=== PATIENT | female | born 1980 | race American Indian/Alaskan Native ===

== ENCOUNTER 2018-04-15 13:56 | Emergency (ER) | payer MEDICAID, OTHER ==
[2018-04-15 14:10] VITALS: BP 125/83; PULSE 81; RESP 16; TEMP 98.3; O2SAT 95; BMI 47.5
--- NOTE | 2018-04-15 14:40 | C.PDOC ---
History Of Present Illness 37 y/o female presents to the ED complaining of persistent right groin pain for 1 month, worsen for the past week. Pain worsens with right leg flexion. No trauma. Also complaining of new onset bilateral inner thigh darkness s/p treatment for fungal skin infection with unknown antibiotics. Denies any itching or redness. Additionally patient reports concern for +STD exposure s/p unprotected sex. Denies any vaginal discharge. Time Seen by Provider: 04/15/18 14:21 Chief Complaint (Nursing): Groin Pain History Per: Patient History/Exam Limitations: no limitations Onset/Duration Of Symptoms: Days Current Symptoms Are (Timing): Still Present Past Medical History Reviewed: Historical Data, Nursing Documentation, Vital Signs Vital Signs: Last Vital Signs Temp 98.3 F 04/15/18 14:06 Pulse 81 04/15/18 14:06 Resp 16 04/15/18 14:06 BP 125/83 04/15/18 14:06 Pulse Ox 95 04/15/18 14:06 - Medical History PMH: Anxiety, Asthma, Bipolar Disorder, Depression, Schizophrenia Denies: Diabetes, Hepatitis, HIV, HTN, Chronic Kidney Disease, Seizures, Sexually Transmitted Disease - [facility] Procedures INDIVID PSYCHOTHERAP NEC (11/14/13) INJECT/INFUSE NEC (09/16/14) NEBULIZER THERAPY (11/19/13) OTHER GROUP THERAPY (11/14/13) PSYCHIA INTERV/EVAL NEC (05/03/13) Family History: States: Unknown Family Hx - Social History Hx Alcohol Use: No Hx Substance Use: Yes - Immunization History Hx Influenza Vaccination: No Review Of Systems Constitutional: Negative for: Fever Gastrointestinal: Negative for: Nausea, Vomiting, Diarrhea Genitourinary: Positive for: Other (right groin pain). Negative for: Dysuria, Frequency, Vaginal Discharge Physical Exam - Physical Exam Appears: Non-toxic, No Acute Distress, Other (Obese) Skin: Warm, Dry, Other (Bilateral inner thigh hyperpigmentation, no excoriation, no erythema, no lesions) Chest: Symmetrical Respiratory: No Accessory Muscle Use, Other (NARD) Extremity: Normal ROM (Full AROM of right hip), Tenderness (Right groin tenderness with reproducible pain, +pain with right hip flexion), No Deformity, No Swelling Pulses: Left Dorsalis Pedis: Normal, Right Dorsalis Pedis: Normal Neurological/Psych: Oriented x3, Normal Speech, Normal Motor, Normal Sensation ED Course And Treatment O2 Sat by Pulse Oximetry: 95 (RA) Pulse Ox Interpretation: Normal Medical Decision Making Medical Decision Making: Impression: 37 y/o female with groin pain, inner thigh discoloration, concern for STD Plan: Patient will be treated empirically with IM rocephin and zithromax. Counseled regarding diagnosis and follow-up instructions. Disposition Counseled Patient/Family Regarding: Diagnosis, Need For Followup, Rx Given - Disposition Referrals: [facility] [Outside] [facility] [Outside] Disposition: HOME/ ROUTINE Disposition Time: 14:39 Condition: IMPROVED Prescriptions: Albuterol HFA [Ventolin HFA 90 mcg/actuation (8 g)] 1 puff IH Q4 #1 inhaler Ibuprofen [Motrin] 600 mg PO Q6 #30 tab Instructions: Groin Strain (DC), Sexually-Transmitted Diseases (DC) Forms: [facility] (Irish) - POA Present On Arrival: None - Clinical Impression Clinical Impression: Hyperpigmentation, Exposure to STD, Groin strain - Scribe Statement The provider has reviewed the documentation as recorded by the Scribe (Clementine Doherty) Provider Attestation: All medical record entries made by the Scribe were at my direction and personally dictated by me. I have reviewed the chart and agree that the record accurately reflects my personal performance of the history, physical exam, medical decision making, and the department course for this patient. I have also personally directed, reviewed, and agree with the discharge instructions and disposition.
[2018-04-15] MEDS ORDERED: cefTRIAXone (Rocephin) 250 mg Inj IM STA (14:41)
== END 2018-04-15 15:00 | disposition home or self-care (01) ==
LOC: C.ER 13:56
DX: S39.011A Strain of muscle, fascia and tendon of abdomen, initial encounter (principal); X58.XXXA Exposure to other specified factors, initial encounter; L81.9 Disorder of pigmentation, unspecified; Z20.2 Contact with and (suspected) exposure to infections with a predominantly sexual mode of transmission
CPT/HCPCS: 96372; 99283; J0696

== ENCOUNTER 2018-05-16 15:08 | Emergency (ER) | payer MEDICAID, OTHER ==
[2018-05-16 15:09] VITALS: BMI 47.5
[2018-05-16 15:18] VITALS: PULSE 89; RESP 20; TEMP 98.7; O2SAT 99
[2018-05-16 15:20] VITALS: BP 130/81
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
== END 2018-05-16 17:35 | disposition left against medical advice (07) ==
LOC: C.ER 15:08
DX: S40.022A Contusion of left upper arm, initial encounter (principal); S40.021A Contusion of right upper arm, initial encounter; Y08.89XA Assault by other specified means, initial encounter